=== PATIENT | male | born 1990 | race Caucasian/White ===

== ENCOUNTER 2017-01-04 13:10 | Emergency (ER) | payer MEDICAID ==
[~2017-01-04] VITALS: Ht 190.5 cm; Wt 113.4 kg
[2017-01-04 14:30] VITALS: BP 143/98
[2017-01-04] MEDS ORDERED: KETOROLAC TROMETH 60MG/2ML VIAL IM ONE (15:00)
[2017-01-04] MEDS ORDERED: cefTRIAXone SOD 1,000 MG VL IM ONE (15:00)
== END 2017-01-04 15:20 | disposition home or self-care (01) ==
LOC: ER 13:15
DX: L02.512 Cutaneous abscess of left hand (principal); Z88.0 Allergy status to penicillin
CPT/HCPCS: 10060; 73140; 96372; 99284; J0696; J1885

== ENCOUNTER 2017-01-07 13:44 | Emergency (ER) | payer MEDICAID | END 2017-01-07 14:26 | disposition left against medical advice (07) | LOC: ER 13:44 | DX: M79.643 Pain in unspecified hand (principal); Z53.21 Procedure and treatment not carried out due to patient leaving prior to being seen by health care provider ==

== ENCOUNTER 2017-01-09 09:29 | Emergency (ER) | payer MEDICAID ==
[~2017-01-09] VITALS: Ht 190.5 cm; Wt 113.4 kg
[2017-01-09 10:09] VITALS: BP 146/86
== END 2017-01-09 10:20 | disposition home or self-care (01) ==
LOC: ER 09:29
DX: L02.512 Cutaneous abscess of left hand (principal); Z48.01 Encounter for change or removal of surgical wound dressing; Z88.0 Allergy status to penicillin

== ENCOUNTER 2017-06-11 15:22 | Emergency (ER) | payer MEDICAID ==
[~2017-06-11] VITALS: Ht 190.5 cm; Wt 102.1 kg
[2017-06-11 15:28] VITALS: BP 154/100
[2017-06-11] MEDS ORDERED: AZITHROMYCIN 250 MG TAB PO ONE (17:15)
[2017-06-11] MEDS ORDERED: PENICILLIN G BENZ 1200000 UNITS/2 ML SYRG IM ONE (17:15)
[2017-06-11] MEDS ORDERED: cefTRIAXone SODIUM 250 MG VL IM ONE (17:45)
[2017-06-11 18:32] LABS: Urine Bacteria NONE SEEN /hpf (None Seen); Urine Blood TRACE /uL (Negative); Urine Mucus FEW (None Seen); Urine Specific Gravity 1.029 (1.001-1.035); Urine WBC 304 /hpf (0 - 3); Urine WBC Clumps PRESENT /hpf (None Seen)
== END 2017-06-11 18:17 | disposition home or self-care (01) ==
LOC: ER 15:24
DX: A64 Unspecified sexually transmitted disease (principal); F17.210 Nicotine dependence, cigarettes, uncomplicated; F12.10 Cannabis abuse, uncomplicated; Z88.0 Allergy status to penicillin
CPT/HCPCS: 81001; 96372; 99283; J0561; J0696